=== PATIENT | female | born 2005 | race Hispanic/Latino ===

== ENCOUNTER 2024-05-16 21:14 | Emergency (ER) | payer OTHER ==
[~2024-05-16] VITALS: Ht 154.9 cm; Wt 44.9 kg
[2024-05-16] MEDS ORDERED: NADOLOL40 MG PO (21:28)
[2024-05-16] MEDS ORDERED: FLECAINIDE ACE100 MG PO (21:28)
[2024-05-16] MEDS ORDERED: PROPRANOLOL HCL60 M1 PO (21:29)
[2024-05-16] MEDS ORDERED: FOLIC ACID 1 MG/0.2 ML ML ONE (21:50)
[2024-05-16] MEDS ORDERED: MULTIVITAMINS 10 ML,FOLIC ACID 1 MG,THIAMINE HCL 100 MG in SODIUM CHLORIDE 0.9% 1,000 ML IV ONE (22:00)
[2024-05-16] MEDS ORDERED: ondansetron HCL 4 MG/2 ML VIAL IV ONE (22:00)
[2024-05-16 22:09] LABS: BASOPHILS 0.1 % (0-2); EOSINOPHILS 0.3 % (0-6); HEMATOCRIT 38.4 % (35.0-50.0); LYMPHOCYTES 5.6 % (24-44); MCH 31.6 (27-36); PLATELET COUNT 205 K/uL (140-440); RBC 4.12 M/ul (4.3-5.7); RDW 13.1 (10.5-15.0)
[2024-05-16 22:24] LABS: ALBUMIN 4.4 g/dL (3.4-5.0); ALBUMIN/GLOBULIN RATIO 1.13 (1.1-2.4); ANION GAP 16.8 (7-21); BILIRUBIN, TOTAL 0.7 ng/dL (0.2-1.0); BUN/CREATININE RATIO 18.96 (6.0-28.6); CALCIUM 9.4 mg/dL (8.5-10.1); CREATININE, SERUM 0.58 mg/dL (0.55-1.02); MAGNESIUM 1.9 mg/dL (1.8-2.4); POTASSIUM 3.8 mmol/L (3.5-5.1); PROTEIN, TOTAL 8.3 g/dL (6.4-8.2)
[2024-05-16 22:53] LABS: BILIRUBIN, URINE NEGATIVE (negative); BLOOD/HGB, URINE NEGATIVE (Negative); KETONE, URINE >=80 (Negative); LEUK ESTERASE, URINE NEGATIVE (negative); NITRITE, URINE NEGATIVE (negative)
[2024-05-16] MEDS ORDERED: ONDANSETRON ODT4 MG PO ×2 (23:24→23:44)
[2024-05-16] MEDS ORDERED: ONDANSETRON 4 MG HOME.PACK SL ONE (23:30)
[2024-05-16 23:44] VITALS: BP 110/68
== END 2024-05-16 23:42 | disposition home or self-care (01) ==
LOC: ED 21:14
PROVIDERS: Internal Medicine
DX: O98.511 Other viral diseases complicating pregnancy, first trimester (principal); A08.4 Viral intestinal infection, unspecified; Z3A.09 9 weeks gestation of pregnancy; Z79.899 Other long term (current) drug therapy
CPT/HCPCS: 36415; 80053; 81003; 83735; 84702; 85025; 96365; 96375; 99284-25; A9270; J2405; J3411; J7030